=== PATIENT | female | born 1985 | race Caucasian/White ===

== ENCOUNTER 2018-06-22 14:32 | Outpatient (CLI) | payer BC, SELFPAY ==
[2018-06-22 15:01] LABS: HGB 13.1 g/dL (12.0-15.5); Mean Corp. HGB Concentration 34.5 g/dL (32.0-36.0); Mean Corpuscular Hemoglobin 31.6 pg (27.0-33.0); Mean Corpuscular Volume 91.8 fL (80-95); Mean Platelet Volume 10.1 fL (8.0-11.0); Platelet Count 224 x1000/uL (130-400); RBC 4.14 m/cumm (4.00-5.20); RBC Distribution Width 12.4 % (11.7-14.6); White Blood Cell Count 6.07 k/cumm (4.4-10.8)
[2018-07-01 22:36] LABS: Specimen WB Whole Blood
== END 2018-06-22 14:52 ==
PROVIDERS: PCP Nurse Practitioner Family; Visit Provider Obstetrics & Gynecology Gynecology
DX: Z31.9 Encounter for procreative management, unspecified (principal); Z13.228 Encounter for screening for other metabolic disorders; Z01.84 Encounter for antibody response examination
CPT/HCPCS: 36415; 85027; 86900; 86901; 81220

== ENCOUNTER 2018-09-11 01:26 | Outpatient (CLI) | payer BC, SELFPAY ==
[2018-09-11 17:33] LABS: HCG Quant, Pregnancy 2 mIU/mL (1-3)
== END 2018-09-11 01:46 ==
PROVIDERS: Visit Provider Obstetrics & Gynecology Gynecology
DX: N91.2 Amenorrhea, unspecified (principal)
CPT/HCPCS: 36415; 84702

== ENCOUNTER 2020-06-16 02:27 | Outpatient (CLI) | payer BC, SELFPAY ==
[2020-06-16 11:22] LABS: HCG Quant, Pregnancy 1 mIU/mL (1-3); TSH (W/Ref FT4) 1.56 uIU/mL (0.36-3.74)
[2020-06-16 21:14] LABS: Estradiol 78 pg/mL (See Note)
[2020-06-16 21:24] LABS: FSH 42.4 mIU/mL (See Note)
[2020-06-19 14:26] LABS: Antimullerian Hormone <0.1 ng/mL (0.9-9.5)
== END 2020-06-16 02:47 ==
PROVIDERS: Visit Provider Obstetrics & Gynecology Gynecology
DX: Z87.42 Personal history of other diseases of the female genital tract (principal)
CPT/HCPCS: 36415; 82670; 83001; 83520; 84146; 84443; 84702

== ENCOUNTER 2020-08-11 10:18 | Outpatient (CLI) | payer BC, SELFPAY ==
[2020-08-13 17:11] LABS: Estradiol 16 pg/mL (See Note)
[2020-08-14 09:34] LABS: FSH 42.1 mIU/mL (See Note)
== END 2020-08-11 10:38 ==
PROVIDERS: Specialist; Visit Provider Obstetrics & Gynecology
DX: N91.2 Amenorrhea, unspecified (principal)
CPT/HCPCS: 36415; 82670; 83001; 83520

== ENCOUNTER 2021-01-11 01:58 | Outpatient (CLI) | payer SELFPAY ==
--- NOTE | 2021-01-11 | DI.DEXA_ITS ---
Exam(s) XR DEXA BONE DENSITY W/WO TIMBO EXAM: XR DEXA BONE DENSITY W/WO TIMBO CLINICAL HISTORY: PREMATURE OVARIAN INSUFFICIENCY,E28.39 TECHNIQUE: Routine DEXA evaluation of the lumbar spine, hip, or forearm. COMPARISON: No exams were available for comparison FINDINGS: Performed on a Hologic unit. Lateral image: No compression fracture evident. Lumbar Spine total T-score: -0.6 Hip total T-score:-1.1. Independent reading at the femoral neck level yields a T-score of -0.7 Forearm total T-score: 0.1 IMPRESSION: Bone mineral density measures in the osteopenia range. Fracture risk is moderate. Note: Any spine fracture indicates 5x risk for subsequent spine fracture and 2x risk for subsequent h ip fracture. World Health Organization criteria for BMD interpretation classify patients: Normal...... T- Score at or above -1.0 Osteopenic... T- Score between -1.0 and -2.5 Osteoporosis... T-Score at or below -2.5
== END 2021-01-11 02:18 ==
DX: E28.39 Other primary ovarian failure (principal); M85.80 Other specified disorders of bone density and structure, unspecified site
CPT/HCPCS: 77080